=== PATIENT | male | born 1940 | race Caucasian/White ===

== ENCOUNTER 2021-02-10 10:51 | Inpatient (IN) | payer MEDICARE ==
[2021-02-10] MEDS ORDERED: methylPREDNISolone Sod Succ/PF 125 MG/2 ML VIAL ONE (11:20)
[2021-02-10 11:59] LABS: #Eosinphils 0.1 10x3/uL (0.0-0.5); #Neutrophils 18.9 10x3/uL (1.5-8.4); %Basophils 0.2 % (0.0-2.0); %Eosinophils 0.2 % (0.0-6.0); %Lymphocytes 5.6 % (18.0-47.0); %Monocytes 4.6 % (0.0-10.0); %Neutrophils 88.5 % (40.0-75.0); Hemoglobin 11.9 g/dL (13.5-17.5); Mean Corpuscular HGB CONC 32.7 g/dL (32.0-36.0); Mean Corpuscular Hemoglobin 34.7 pg (27.0-33.0); Mean Corpuscular Volume 106.1 fl (81.2-95.1); Mean Platelet Volume 9.2 fl (7.4-10.4); Platelet Count 775 10x3/uL (150-450); RBC Distribution Width 13.4 % (11.5-14.5); Red Blood Cell (RBC) Count 3.43 10x6/uL (4.32-5.72); White Blood Cell (WBC) Count 21.3 10x3/uL (3.5-10.5)
[2021-02-10 12:04] LABS: ALT (SGPT) 26 U/L (8-55); AST (SGOT) 29 U/L (5-34); Albumin 4.1 g/dL (3.4-4.8); Alkaline Phosphatase 93 U/L (40-110); Anion Gap 17 mmol/L (10-20); BUN (Urea Nitrogen) 32 mg/dL (8.4-25.7); Bilirubin, Total 1.7 mg/dL (0.2-1.2); CK (CPK) 59 U/L (30-200); Calc. Creatinine Clearance 0 mL/min (70-130); Calcium 8.9 mg/dL (7.8-10.44); Carbon Dioxide 20 mmol/L (23-31); Chloride 102 mmol/L (98-107); Globulin 3.5 g/dL (2.4-3.5); Glucose 355 mg/dL (83-110); Lipase 47 U/L (8-78); Magnesium 1.8 mg/dL (1.6-2.6); Potassium 5.4 mmol/L (3.5-5.1); Protein, Total 7.6 g/dL (5.8-8.1); Sodium 134 mmol/L (136-145)
[2021-02-10 12:09] LABS: INR-International Normal Ratio 1.1; PTT 28.3 sec (22.0-33.0); Prothrombin Time 12.1 sec (9.5-12.1)
[2021-02-10] MEDS ORDERED: Piperacillin/Tazobactam 4.5 GM VIAL ONE (12:17)
[2021-02-10] MEDS ORDERED: Furosemide 40 MG/4 ML VIAL ONE ×2 (12:17→13:43)
[2021-02-10 12:23] LABS: Macrocytosis SLIGHT = 6-15 cells (100X) (0-5/hpf); Platelet Morphology Comment Appears Increased
[2021-02-10 12:27] LABS: CKMB 3.2 ng/mL (0-6.6)
[2021-02-10] MEDS: Furosemide 40 MG/4 ML VIAL SLOW IVP SCH (12:30)
[2021-02-10 12:37] LABS: Actual Bicarbonate (HCO3a) 19.2 mEq/L (22-28); Base Excess (BEa) -6.2 mEq/L (-2.0 to +3.0); CO2 Tension 37.6 mmHg (35.0-45.0); Calcium, Ionized (arterial) 1.18 mmol/L (1.12-1.30); Carboxyhemoglobin (COHb) 0.8 gm% (0.0-3.0); Hemoglobin (Hb) 13.1 g/dL (14.0-18.0); O2 Tension (PaO2), arterial 50.6 mmHg (> 70.0); Potassium - ABG Lab 5.2 mmol/L (3.70-5.30); Puncture Site RRA; pH, Arterial 7.33 (7.35-7.45)
[2021-02-10 12:46] LABS: SARS-CoV-2 NAA Rapid Test Not Detected (NotDetected)
[2021-02-10] MEDS ORDERED: Ondansetron PF 4 MG/2 ML Vial IVP PRN (13:49)
[2021-02-10] MEDS ORDERED: Acetaminophen 325 MG TAB PO PRN (13:49)
[2021-02-10] MEDS ORDERED: HYDROcodone/Acetaminophen 5/325 mg Tablet PO PRN (13:49)
[2021-02-10] MEDS ORDERED: Senokot S 8.6-50 MG TAB PO PRN (13:49)
[2021-02-10] MEDS ORDERED: Albuterol Sulfate 2.5 mg/3 ml Neb NEB PRN (13:53)
[2021-02-10] MEDS ORDERED: Dextrose 50% Abboject 50 ML SYRINGE SLOW IVP PRN (14:08)
[2021-02-10] MEDS ORDERED: Dextrose 5% in Water 1,000 ML IV PRN (14:08)
[2021-02-10 14:45] LABS: Lactic Acid 1.5 mmol/L (0.5-2.2)
[2021-02-10] MEDS ORDERED: hydrALAZINE 20 MG/ML VIAL SLOW IVP PRN (14:50)
[2021-02-10 17:01] LABS: Glucose 310 mg/dL (83-110)
[2021-02-10 17:13] LABS: Troponin I 6.942 ng/mL (< 0.028)
[2021-02-10 17:34] VITALS: BMI 35.3
[2021-02-10] MEDS ORDERED: Nitroglycerin 0.4 MG TAB (25 Tab Bottle) SL PRN (17:56)
[2021-02-10] MEDS: Heparin 10,000 UNITS/ 10 ML VIAL SLOW IVP SCH (18:23)
[2021-02-10] MEDS: Heparin 25,000 units/D5W 500 ML IVPB SCH (18:23)
[2021-02-10 18:37] LABS: Hemoglobin 13.4 g/dL (13.5-17.5); Platelet Count 721 10x3/uL (150-450)
[2021-02-10] MEDS: Atorvastatin Calcium 40 MG TAB PO SCH (21:16)
[2021-02-10] MEDS: guaiFENesin ER 600 MG TAB PO SCH (21:16)
[2021-02-10] MEDS: Famotidine 20 MG TAB PO SCH (21:16)
[2021-02-10] MEDS: Cefepime 1 GM in Sodium Chloride 0.9% 100 ML IVPB SCH (21:16)
[2021-02-10] MEDS: Insulin Regular 300 UNITS/3 ML VIAL SC PRN (21:29)
[2021-02-11 05:24] LABS: Hemoglobin 11.8 g/dL (13.5-17.5); Mean Corpuscular HGB CONC 33.8 g/dL (32.0-36.0); Mean Corpuscular Hemoglobin 34.6 pg (27.0-33.0); Mean Corpuscular Volume 102.3 fl (81.2-95.1); Mean Platelet Volume 9.2 fl (7.4-10.4); Platelet Count 717 10x3/uL (150-450); Red Blood Cell (RBC) Count 3.41 10x6/uL (4.32-5.72); White Blood Cell (WBC) Count 19.8 10x3/uL (3.5-10.5)
[2021-02-11 05:27] LABS: ALT (SGPT) 26 U/L (8-55); AST (SGOT) 57 U/L (5-34); Albumin 3.7 g/dL (3.4-4.8); Alkaline Phosphatase 78 U/L (40-110); Anion Gap 18 mmol/L (10-20); BUN (Urea Nitrogen) 41 mg/dL (8.4-25.7); Bilirubin, Total 1.2 mg/dL (0.2-1.2); Calc. Creatinine Clearance 47 mL/min (70-130); Calcium 9.2 mg/dL (7.8-10.44); Carbon Dioxide 21 mmol/L (23-31); Cardiac Risk 2.9 (Less than 4.5); Chloride 102 mmol/L (98-107); Cholesterol 122 mg/dl (< 200 Desired); Globulin 3.9 g/dL (2.4-3.5); Glucose 261 mg/dL (83-110); HDL Cholesterol 42 mg/dL (>60 Neg Risk); LDL Cholesterol, Calculated 68 mg/dL; Protein, Total 7.6 g/dL (5.8-8.1); Sodium 137 mmol/L (136-145); Triglycerides 60 mg/dL (Less than 150)
[2021-02-11 05:36] LABS: Troponin I 12.825 ng/mL (< 0.028)
[2021-02-11 05:42] LABS: MDiff Complete? YES
[2021-02-11 05:44] LABS: Band 6 % (5-11); Lymphocytes 3 % (21-51); Monocytes 5 % (0-10); Neutrophil 86 % (42-75)
[2021-02-11 05:47] LABS: Anisocytosis SLIGHT = 6-15 cells (100X) (0-5/hpf); Hypochromia SLIGHT = 6-15 cells (100X) (0-5/hpf); Platelet Morphology Comment Appears Increased; Poikilocytosis SLIGHT = 6-15 cells (100X) (0-5/hpf); Polychromasia SLIGHT = 2-3 cells (100X) (0-2/hpf)
[2021-02-11] MEDS: Furosemide 40 MG/4 ML VIAL SLOW IVP SCH ×2 (06:38→13:34)
[2021-02-11] MEDS ORDERED: Insulin Regular 300 UNITS/3 ML VIAL IVP SCH (06:45)
[2021-02-11 07:15] LABS: PTT 90.5 sec (22.0-33.0)
[2021-02-11] MEDS: Lisinopril 5 MG TAB PO SCH (07:27)
[2021-02-11] MEDS: Insulin Regular 300 UNITS/3 ML VIAL SC PRN ×4 (08:44→20:47)
[2021-02-11] MEDS ORDERED: Enoxaparin Sodium 30 MG/0.3 ML SYRINGE SC SCH (09:00)
[2021-02-11] MEDS: guaiFENesin ER 600 MG TAB PO SCH ×2 (09:03→20:04)
[2021-02-11] MEDS: Cefepime 1 GM in Sodium Chloride 0.9% 100 ML IVPB SCH ×2 (09:03→20:04)
[2021-02-11] MEDS: Aspirin 81 mg Enteric Coated Tablet PO SCH (09:03)
[2021-02-11 09:16] LABS: Hemoglobin A1c 7.7 % (4.0-6.0)
[2021-02-11 11:31] LABS: Troponin I 6.705 ng/mL (< 0.028)
[2021-02-11] MEDS: Vancomycin HCl 1 GM in Sodium Chloride 0.9% 250 ML 250 ML IVPB SCH (13:34)
[2021-02-11] MEDS: Heparin 10,000 UNITS/ 10 ML VIAL SLOW IVP SCH (14:18)
[2021-02-11] MEDS: Heparin 25,000 units/D5W 500 ML IVPB SCH (16:01)
[2021-02-11] MEDS: Atorvastatin Calcium 40 MG TAB PO SCH (20:04)
[2021-02-11] MEDS: Famotidine 20 MG TAB PO SCH (20:04)
[2021-02-12 01:03] LABS: PTT 79.3 sec (22.0-33.0)
[2021-02-12 05:00] LABS: #Eosinphils 0.1 10x3/uL (0.0-0.5); #Monocytes 1.4 10x3/uL (0.0-1.1); #Neutrophils 15.6 10x3/uL (1.5-8.4); %Basophils 0.2 % (0.0-2.0); %Eosinophils 0.4 % (0.0-6.0); %Lymphocytes 7.8 % (18.0-47.0); %Monocytes 7.7 % (0.0-10.0); %Neutrophils 83.4 % (40.0-75.0); Hemoglobin 11.5 g/dL (13.5-17.5); Mean Corpuscular HGB CONC 33.4 g/dL (32.0-36.0); Mean Corpuscular Hemoglobin 34.1 pg (27.0-33.0); Mean Corpuscular Volume 102.1 fl (81.2-95.1); Mean Platelet Volume 9.4 fl (7.4-10.4); Platelet Count 680 10x3/uL (150-450); RBC Distribution Width 13.4 % (11.5-14.5); Red Blood Cell (RBC) Count 3.37 10x6/uL (4.32-5.72); White Blood Cell (WBC) Count 18.7 10x3/uL (3.5-10.5)
[2021-02-12 05:19] LABS: ALT (SGPT) 23 U/L (8-55); AST (SGOT) 34 U/L (5-34); Albumin 3.6 g/dL (3.4-4.8); Alkaline Phosphatase 72 U/L (40-110); Anion Gap 18 mmol/L (10-20); BUN (Urea Nitrogen) 39 mg/dL (8.4-25.7); Bilirubin, Total 0.9 mg/dL (0.2-1.2); Calc. Creatinine Clearance 58 mL/min (70-130); Carbon Dioxide 21 mmol/L (23-31); Chloride 103 mmol/L (98-107); Globulin 3.8 g/dL (2.4-3.5); Glucose 195 mg/dL (83-110); Magnesium 1.8 mg/dL (1.6-2.6); Potassium 3.6 mmol/L (3.5-5.1); Protein, Total 7.4 g/dL (5.8-8.1); Sodium 138 mmol/L (136-145)
[2021-02-12] MEDS: Furosemide 40 MG/4 ML VIAL SLOW IVP SCH ×2 (05:48→13:02)
[2021-02-12] MEDS: Insulin Regular 300 UNITS/3 ML VIAL SC PRN ×4 (06:01→16:01)
[2021-02-12] MEDS: Aspirin 81 mg Enteric Coated Tablet PO SCH (08:06)
[2021-02-12] MEDS: guaiFENesin ER 600 MG TAB PO SCH ×2 (08:06→20:48)
[2021-02-12] MEDS: Lisinopril 5 MG TAB PO SCH (08:06)
[2021-02-12] MEDS: Cefepime 1 GM in Sodium Chloride 0.9% 100 ML IVPB SCH ×2 (08:07→20:49)
[2021-02-12] MEDS ORDERED: Enoxaparin Sodium 40 MG/0.4 ML SYRINGE SC SCH ×2 (09:30→12:00)
[2021-02-12] MEDS: Vancomycin HCl 1 GM in Sodium Chloride 0.9% 250 ML 250 ML IVPB SCH (13:02)
[2021-02-12] MEDS: Carvedilol 6.25 MG TAB PO SCH (16:02)
[2021-02-12 18:17] LABS: Hemoglobin 11.7 g/dL (13.5-17.5); Platelet Count 697 10x3/uL (150-450)
[2021-02-12] MEDS: Famotidine 20 MG TAB PO SCH (20:48)
[2021-02-12] MEDS: Atorvastatin Calcium 40 MG TAB PO SCH (20:48)
[2021-02-13 04:58] LABS: #Eosinphils 0.2 10x3/uL (0.0-0.5); #Monocytes 1.4 10x3/uL (0.0-1.1); #Neutrophils 9.5 10x3/uL (1.5-8.4); %Basophils 0.2 % (0.0-2.0); %Eosinophils 1.3 % (0.0-6.0); %Lymphocytes 10.8 % (18.0-47.0); %Monocytes 10.8 % (0.0-10.0); Hemoglobin 11.2 g/dL (13.5-17.5); Mean Corpuscular HGB CONC 33.7 g/dL (32.0-36.0); Mean Corpuscular Hemoglobin 34.4 pg (27.0-33.0); Mean Corpuscular Volume 101.8 fl (81.2-95.1); Mean Platelet Volume 9.1 fl (7.4-10.4); Platelet Count 627 10x3/uL (150-450); RBC Distribution Width 13.7 % (11.5-14.5); Red Blood Cell (RBC) Count 3.26 10x6/uL (4.32-5.72); White Blood Cell (WBC) Count 12.5 10x3/uL (3.5-10.5)
[2021-02-13 05:20] LABS: Anion Gap 19 mmol/L (10-20); BUN (Urea Nitrogen) 44 mg/dL (8.4-25.7); Calc. Creatinine Clearance 52 mL/min (70-130); Carbon Dioxide 20 mmol/L (23-31); Chloride 104 mmol/L (98-107); Glucose 184 mg/dL (83-110); Magnesium 1.9 mg/dL (1.6-2.6); Potassium 3.5 mmol/L (3.5-5.1); Sodium 139 mmol/L (136-145)
[2021-02-13] MEDS: Furosemide 40 MG/4 ML VIAL SLOW IVP SCH ×2 (06:31→15:39)
[2021-02-13] MEDS: Insulin Regular 300 UNITS/3 ML VIAL SC PRN ×3 (06:33→17:06)
[2021-02-13] MEDS: Enoxaparin Sodium 40 MG/0.4 ML SYRINGE SC SCH (09:15)
[2021-02-13] MEDS: Lisinopril 5 MG TAB PO SCH (09:16)
[2021-02-13] MEDS: Carvedilol 6.25 MG TAB PO SCH ×2 (09:17→17:41)
[2021-02-13] MEDS: Aspirin 81 mg Enteric Coated Tablet PO SCH (09:17)
[2021-02-13] MEDS: Cefepime 1 GM in Sodium Chloride 0.9% 100 ML IVPB SCH (09:18)
[2021-02-13] MEDS: guaiFENesin ER 600 MG TAB PO SCH ×2 (10:06→21:10)
[2021-02-13 13:30] LABS: Vancomycin, Trough 10.4 ug/mL
[2021-02-13] MEDS: Vancomycin HCl 1 GM in Sodium Chloride 0.9% 250 ML 250 ML IVPB SCH (14:56)
[2021-02-13] MEDS: Atorvastatin Calcium 40 MG TAB PO SCH (21:10)
[2021-02-13] MEDS: Amoxicillin/Potassium Clav 875 MG TAB PO SCH (21:10)
[2021-02-13] MEDS: Famotidine 20 MG TAB PO SCH (21:11)
[2021-02-14 05:11] LABS: #Eosinphils 0.3 10x3/uL (0.0-0.5); #Monocytes 1.1 10x3/uL (0.0-1.1); #Neutrophils 8.7 10x3/uL (1.5-8.4); %Basophils 0.4 % (0.0-2.0); %Eosinophils 2.6 % (0.0-6.0); %Lymphocytes 10.4 % (18.0-47.0); %Monocytes 9.5 % (0.0-10.0); %Neutrophils 76.3 % (40.0-75.0); Hemoglobin 10.7 g/dL (13.5-17.5); Mean Corpuscular Hemoglobin 34.2 pg (27.0-33.0); Mean Corpuscular Volume 103.5 fl (81.2-95.1); Mean Platelet Volume 9.3 fl (7.4-10.4); Platelet Count 618 10x3/uL (150-450); RBC Distribution Width 13.4 % (11.5-14.5); Red Blood Cell (RBC) Count 3.13 10x6/uL (4.32-5.72); White Blood Cell (WBC) Count 11.3 10x3/uL (3.5-10.5)
[2021-02-14 05:26] LABS: ALT (SGPT) 20 U/L (8-55); AST (SGOT) 21 U/L (5-34); Albumin 3.4 g/dL (3.4-4.8); Alkaline Phosphatase 71 U/L (40-110); Anion Gap 16 mmol/L (10-20); BUN (Urea Nitrogen) 44 mg/dL (8.4-25.7); Bilirubin, Total 0.7 mg/dL (0.2-1.2); Calc. Creatinine Clearance 54 mL/min (70-130); Carbon Dioxide 24 mmol/L (23-31); Chloride 103 mmol/L (98-107); Globulin 3.5 g/dL (2.4-3.5); Glucose 218 mg/dL (83-110); Magnesium 1.9 mg/dL (1.6-2.6); Potassium 3.4 mmol/L (3.5-5.1); Protein, Total 6.9 g/dL (5.8-8.1); Sodium 140 mmol/L (136-145)
[2021-02-14] MEDS: Insulin Regular 300 UNITS/3 ML VIAL SC PRN (06:25)
[2021-02-14] MEDS: Furosemide 40 MG/4 ML VIAL SLOW IVP SCH ×2 (06:26→14:09)
[2021-02-14] MEDS: Aspirin 81 mg Enteric Coated Tablet PO SCH (08:35)
[2021-02-14] MEDS: Lisinopril 5 MG TAB PO SCH (08:35)
[2021-02-14] MEDS: Amoxicillin/Potassium Clav 875 MG TAB PO SCH (08:36)
[2021-02-14] MEDS: Carvedilol 6.25 MG TAB PO SCH ×2 (08:36→17:45)
[2021-02-14] MEDS: Enoxaparin Sodium 40 MG/0.4 ML SYRINGE SC SCH (08:37)
[2021-02-14] MEDS: guaiFENesin ER 600 MG TAB PO SCH (08:41)
[2021-02-14] MEDS ORDERED: Sodium Chloride 0.9% 1,000 ML IV SCH (11:00)
[2021-02-14] MEDS ORDERED: Lidocaine 1% (PF) 30 ML VIAL ONE (12:30)
[2021-02-14] MEDS ORDERED: Nitroglycerin 50 MG/250 ML BOT 0 ML ONE (12:31)
[2021-02-14] MEDS ORDERED: Heparin 10,000 UNITS/ 10 ML VIAL ONE (12:31)
[2021-02-14] MEDS ORDERED: Adenosine 6 MG/2 ML VIAL ONE (12:31)
[2021-02-14] MEDS ORDERED: Midazolam HCl 2 mg/2 ml Vial ONE ×2 (12:32→13:16)
[2021-02-14] MEDS ORDERED: Fentanyl 250 MCG/5 ML VIAL ONE (12:32)
[2021-02-14 16:14] VITALS: TEMP 97.6
[2021-02-14] MEDS ORDERED: Sodium Chloride 0.9% 200 ML IV PRN (16:21)
[2021-02-14] MEDS ORDERED: Acetaminophen/Codeine 30-300mg Tablet PO PRN ×2 (16:21)
[2021-02-14] MEDS ORDERED: Nitroglycerin 0.4 MG TAB (25 Tab Bottle) SL PRN (16:21)
[2021-02-14] MEDS ORDERED: Communication Order-Pharmacy FS PRN (17:29)
[2021-02-14 18:19] LABS: Hemoglobin 11.4 g/dL (13.5-17.5); Platelet Count 646 10x3/uL (150-450)
[2021-02-14 21:20] VITALS: BP 144/69
== END 2021-02-14 17:55 | disposition short-term general hospital (02) | DRG 871 ==
LOC: CSHERS 10:51 → SUATTDRO 10:51 → CSHIMCU 17:13 → CSHTELE 02-12 15:03
PROVIDERS: ADMIT Family Medicine; ATTEND Internal Medicine
PROC: 5A09357 Assistance with Respiratory Ventilation, Less than 24 Consecutive Hours, Continuous Positive Airway Pressure (ICD-10-PCS; principal; 2021-02-10)
PROC: 4A023N7 Measurement of Cardiac Sampling and Pressure, Left Heart, Percutaneous Approach (ICD-10-PCS; 2021-02-14)
PROC: B2111ZZ Fluoroscopy of Multiple Coronary Arteries using Low Osmolar Contrast (ICD-10-PCS; 2021-02-14)
PROC: B2161ZZ Fluoroscopy of Right and Left Heart using Low Osmolar Contrast (ICD-10-PCS; 2021-02-14)
DX: A41.9 Sepsis, unspecified organism (principal); J18.9 Pneumonia, unspecified organism; J96.01 Acute respiratory failure with hypoxia; I21.4 Non-ST elevation (NSTEMI) myocardial infarction; I50.43 Acute on chronic combined systolic (congestive) and diastolic (congestive) heart failure; I13.0 Hypertensive heart and chronic kidney disease with heart failure and stage 1 through stage 4 chronic kidney disease, or unspecified chronic kidney disease; Z20.822 Contact with and (suspected) exposure to COVID-19; E78.5 Hyperlipidemia, unspecified; E11.22 Type 2 diabetes mellitus with diabetic chronic kidney disease; I25.10 Atherosclerotic heart disease of native coronary artery without angina pectoris; N18.30 Chronic kidney disease, stage 3 unspecified; Z89.511 Acquired absence of right leg below knee; Z87.891 Personal history of nicotine dependence; D47.3 Essential (hemorrhagic) thrombocythemia; Z79.82 Long term (current) use of aspirin; Z79.4 Long term (current) use of insulin; Z79.899 Other long term (current) drug therapy; I25.5 Ischemic cardiomyopathy; I25.2 Old myocardial infarction
CPT/HCPCS: 0240U; 36415; 36416; 36600; 71045; 80048; 80053; 80061; 80202; 82550; 82553; 82805; 83036; 83605; 83690; 83735; 83880; 84484; 85007; 85014; 85018; 85025; 85027; 85049; 85610; 85730; 86850; 86900; 86901; 87040; 87070; 87205; 93005; 93306; 93459; 94640; 94660; 94760; 96365; 96366; 96367; 96375; 96376; 99152; 99153; J0153; J0692; J1644; J1650; J1815; J1940; J2001; J2250; J2543; J2930; J3010; J3370; J3490; J7050; J7620

== ENCOUNTER 2021-04-26 15:55 | Outpatient (CLI) | payer MEDICARE | END 2021-04-26 15:56 | disposition home or self-care (01) | LOC: CSHMRI 15:55 | PROVIDERS: ATTEND Podiatrist Foot & Ankle Surgery | DX: L97.522 Non-pressure chronic ulcer of other part of left foot with fat layer exposed (principal); M86.9 Osteomyelitis, unspecified ==